=== PATIENT | female | born 1935 | race Asian ===

== ENCOUNTER 2016-08-16 06:47 | Day surgery (SDC) | payer MEDICARE ==
[~2016-08-16] VITALS: Ht 154.9 cm; Wt 70.5 kg
[~2016-08-16 06:47] MED LIST: AMLO5TAB2 PO; ASPI-496 PO; CALCIUM PO; FENTANYL PF 100 MCG/2ML ONE; HYDR25TA6 PO; LOSA100T6 PO; MAGNESIUM PO; MULT-516 PO; POTA10TA5 PO
[2016-08-16] MEDS ORDERED: BACITRACIN/POLYMIXIN B SULFATE OINT 14 GM ONE (06:58)
[2016-08-16] MEDS ORDERED: BALANCED SALT OPHTH IRRIG SOLN 18ML ONE (06:58)
[2016-08-16] MEDS ORDERED: LIDOCAINE/PF 1%-EPI 1:200K, 30ML ONE (06:58)
[2016-08-16] MEDS ORDERED: ONDANSETRON 2MG/ML, 2ML IVPush PRN (07:30)
[2016-08-16] MEDS ORDERED: hydrALAzine 20 MG/ML, 1ML IV PRN (07:30)
[2016-08-16] MEDS ORDERED: FENTANYL PF 100 MCG/2ML IV PRN (07:30)
[2016-08-16] MEDS ORDERED: LABETALOL 5MG/ML, 20ML IV PRN (07:30)
[2016-08-16] MEDS ORDERED: ACETAMINOPHEN 325 MG TABLET PO PRN (07:30)
[2016-08-16] MEDS ORDERED: MIDAZOLAM 1 MG/ML, 2ML ONE (07:32)
[2016-08-16] MEDS ORDERED: LACTATED RINGERS 1,000 ML IV SCH (07:35)
[2016-08-16 07:36] VITALS: BP 145/85
[2016-08-16] MEDS ORDERED: PROPOFOL 10 MG/ML, 20ML ONE (07:38)
[2016-08-16] MEDS ORDERED: CEFAZOLIN 1,000 MG ONE (07:38)
[2016-08-16] MEDS ORDERED: LIDOCAINE 1%-EPI 1:100K, 30ML INFIL ONE (08:05)
[2016-08-16] MEDS ORDERED: BALANCED SALT OPHTH IRRIG SOLN 18ML IO ONE (08:06)
[2016-08-16] MEDS ORDERED: ACETAMINOPHEN 650 MG/20.3 ML UDC ONE (09:18)
== END 2016-08-16 10:55 | disposition home or self-care (01) ==
LOC: OUT 06:47
PROVIDERS: ATTEND Plastic Surgery
DX: H02.831 Dermatochalasis of right upper eyelid (principal); H02.834 Dermatochalasis of left upper eyelid; I10 Essential (primary) hypertension; J45.909 Unspecified asthma, uncomplicated; M19.90 Unspecified osteoarthritis, unspecified site; Z86.19 Personal history of other infectious and parasitic diseases; Z90.49 Acquired absence of other specified parts of digestive tract; Z96.653 Presence of artificial knee joint, bilateral; Z98.49 Cataract extraction status, unspecified eye; Z96.1 Presence of intraocular lens; Z82.49 Family history of ischemic heart disease and other diseases of the circulatory system; Z83.79 Family history of other diseases of the digestive system
CPT/HCPCS: 15823; J0690; J2250; J2704; J3490; J7120; J3010

== ENCOUNTER → 2017-05-12 | Outpatient (CLI) | payer MEDICARE ==
[~2017-05-12] MED LIST changes: -FENTANYL PF 100 MCG/2ML ONE
== END | disposition home or self-care (01) ==
LOC: CFH 06:55
PROVIDERS: ATTEND Internal Medicine
DX: M75.102 Unspecified rotator cuff tear or rupture of left shoulder, not specified as traumatic (principal); M19.012 Primary osteoarthritis, left shoulder; M62.512 Muscle wasting and atrophy, not elsewhere classified, left shoulder; M25.412 Effusion, left shoulder; M65.812 Other synovitis and tenosynovitis, left shoulder

== ENCOUNTER 2019-11-14 09:36 | Outpatient (CLI) | payer MEDICARE ==
[~2019-11-14 09:36] MED LIST changes: +AMLO-150 PO; -AMLO5TAB2 PO; +LOSA100T14 PO; -LOSA100T6 PO
== END 2019-11-14 23:59 | disposition home or self-care (01) ==
LOC: CFH 09:36
PROVIDERS: ATTEND Internal Medicine Cardiovascular Disease
DX: I08.0 Rheumatic disorders of both mitral and aortic valves (principal); I10 Essential (primary) hypertension
CPT/HCPCS: 93306

== ENCOUNTER → 2020-04-03 | Outpatient (CLI) | payer MEDICARE ==
[~2020-04-03] MED LIST changes: +BACL20TA PO; +OXYB10TA26 PO; +losartan PO; +lyrica PO; +magnesium PO
[2020-04-03 13:53] LABS: ALANINE AMINOTRANSFERASE 28 U/L (12-78); ALBUMIN 4.4 g/dL (3.4-5.0); ALKALINE PHOSPHATASE 64 U/L (45-117); ANION GAP 7 mmol/L (5-15); BILIRUBIN,TOTAL 0.4 mg/dL (0.2-1.0); CALCIUM 9.4 mg/dL (8.5-10.1); CHLORIDE 101 mmol/L (98-107); CREATININE 0.87 mg/dL (0.55-1.02); TOTAL PROTEIN 8.5 g/dL (6.4-8.2)
== END | disposition home or self-care (01) ==
LOC: STAR 11:21
PROVIDERS: ATTEND Obstetrics & Gynecology Female Pelvic Medicine and Reconstructive Surgery
DX: Z01.818 Encounter for other preprocedural examination (principal); I49.8 Other specified cardiac arrhythmias; I45.19 Other right bundle-branch block; Z20.828 Contact with and (suspected) exposure to other viral communicable diseases
CPT/HCPCS: 36415; 80053; 87635; 93005

== ENCOUNTER 2020-04-07 10:53 | Day surgery (SDC) | payer MEDICARE ==
[~2020-04-07] VITALS: Ht 152.4 cm; Wt 72.1 kg
[~2020-04-07 10:53] MED LIST changes: +BUPIVACAINE/PF 0.25% ONE
[2020-04-07] MEDS ORDERED: LACTATED RINGERS 1,000 ML IV SCH (11:04)
[2020-04-07] MEDS ORDERED: CHLORHEXIDINE 15 ML UDC MM STA (11:04)
[2020-04-07] MEDS ORDERED: FENTANYL PF 100 MCG/2ML ONE (14:58)
[2020-04-07] MEDS ORDERED: SUCCINYLCHOLINE 20 MG/ML, 10ML ONE (15:29)
[2020-04-07] MEDS ORDERED: PROPOFOL 10 MG/ML, 20ML ONE (15:29)
[2020-04-07] MEDS ORDERED: CEFAZOLIN 1,000 MG ONE (15:29)
[2020-04-07] MEDS ORDERED: ONDANSETRON 2MG/ML, 2ML ONE (15:29)
[2020-04-07] MEDS ORDERED: NEOSTIGMINE 1 MG/ML, 10ML ONE (15:29)
[2020-04-07] MEDS ORDERED: ROCURONIUM 10MG/ML,5ML ONE (15:29)
[2020-04-07] MEDS ORDERED: DEXAMETHASONE 4 MG/ML, 1ML ONE (15:29)
[2020-04-07] MEDS ORDERED: GLYCOPYRROLATE 0.2MG/1ML, 5ML ONE (15:29)
[2020-04-07] MEDS ORDERED: FENTANYL PF 100 MCG/2ML IV PRN (15:30)
[2020-04-07] MEDS ORDERED: ACETAMINOPHEN 325 MG TABLET PO PRN (15:30)
[2020-04-07] MEDS ORDERED: ONDANSETRON 2MG/ML, 2ML IVPush PRN (15:30)
[2020-04-07] MEDS ORDERED: HYDROmorphone 1 MG/ML, 1ML INJ IVPush PRN (15:30)
[2020-04-07] MEDS ORDERED: PROMETHAZINE 25 MG/ML, 1ML IVPush PRN (15:30)
[2020-04-07] MEDS ORDERED: OXYcodone 5 MG/5 ML ORAL.SOL UDC PO PRN (15:30)
[2020-04-07] MEDS ORDERED: PROMETHAZINE 25 MG SUPP PR PRN (15:30)
[2020-04-07] MEDS ORDERED: LABETALOL 5MG/ML, 20ML IV PRN (15:30)
[2020-04-07] MEDS ORDERED: hydrALAzine 20 MG/ML, 1ML IV PRN (15:30)
[2020-04-07] MEDS ORDERED: KETOROLAC 30 MG/1 ML ONE (16:22)
[2020-04-07] MEDS ORDERED: KETOROLAC 30 MG/1 ML IVPush ONE (17:00)
== END 2020-04-07 17:45 | disposition home or self-care (01) ==
LOC: OUT 10:53
PROVIDERS: ATTEND Obstetrics & Gynecology Female Pelvic Medicine and Reconstructive Surgery
DX: N95.0 Postmenopausal bleeding (principal); N84.0 Polyp of corpus uteri; I10 Essential (primary) hypertension; Z79.899 Other long term (current) drug therapy; Z98.890 Other specified postprocedural states
CPT/HCPCS: 58558; 88305; J1885; J2405; J2704; J3010; J7120; J0690; J1100; J2710; J0330

== ENCOUNTER → 2020-07-15 | Outpatient (CLI) | payer MEDICARE ==
[~2020-07-15] MED LIST changes: -BUPIVACAINE/PF 0.25% ONE; +IRBE300T8 PO; +PREG50CA PO; +turmeric PO
[2020-07-15 11:01] LABS: ALANINE AMINOTRANSFERASE 29 U/L (12-78); ALBUMIN 4.2 g/dL (3.4-5.0); ANION GAP 8 mmol/L (5-15); CHLORIDE 99 mmol/L (98-107); CREATININE 0.86 mg/dL (0.55-1.02)
[2020-07-15 11:03] LABS: ALKALINE PHOSPHATASE 62 U/L (45-117); BILIRUBIN,TOTAL 0.6 mg/dL (0.2-1.0); TOTAL PROTEIN 8.1 g/dL (6.4-8.2)
== END | disposition home or self-care (01) ==
LOC: STAR 09:22
PROVIDERS: ATTEND Obstetrics & Gynecology Female Pelvic Medicine and Reconstructive Surgery
DX: Z01.818 Encounter for other preprocedural examination (principal); R10.2 Pelvic and perineal pain; N39.3 Stress incontinence (female) (male); N81.10 Cystocele, unspecified; D25.0 Submucous leiomyoma of uterus; R94.31 Abnormal electrocardiogram [ECG] [EKG]; Z20.822 Contact with and (suspected) exposure to COVID-19
CPT/HCPCS: 36415; 80053; 93005; U0003

== ENCOUNTER 2020-07-21 07:33 | Day surgery (SDC) | payer MEDICARE ==
[~2020-07-21] VITALS: Ht 152.4 cm; Wt 73.6 kg
[~2020-07-21 07:33] MED LIST changes: +BUPIVACAINE/PF 0.25% ONE; +EPINEPHRINE 1 MG/ML, 1ML ONE; +NEOMY/POLYMYXIN B GU IRR. 1 ML ONE
[2020-07-21] MEDS ORDERED: CHLORHEXIDINE 15 ML UDC MM ONE (08:00)
[2020-07-21] MEDS ORDERED: LACTATED RINGERS 1,000 ML IV SCH (08:00)
[2020-07-21 08:10] VITALS: BP 147/91
[2020-07-21] MEDS ORDERED: PROPOFOL 10 MG/ML, 20ML ONE (09:48)
[2020-07-21] MEDS ORDERED: ONDANSETRON 2MG/ML, 2ML ONE (09:48)
[2020-07-21] MEDS ORDERED: NEOSTIGMINE 1 MG/ML, 10ML ONE (09:48)
[2020-07-21] MEDS ORDERED: SUCCINYLCHOLINE 20 MG/ML, 10ML ONE (09:48)
[2020-07-21] MEDS ORDERED: ROCURONIUM 10MG/ML,5ML ONE (09:48)
[2020-07-21] MEDS ORDERED: GLYCOPYRROLATE 0.2MG/1ML, 5ML ONE (09:48)
[2020-07-21] MEDS ORDERED: DEXAMETHASONE 4 MG/ML, 1ML ONE (09:48)
[2020-07-21] MEDS ORDERED: CEFAZOLIN 1,000 MG ONE (09:48)
[2020-07-21] MEDS ORDERED: SUGAMMADEX 200 MG/2 ML IVPush ONE (09:49)
[2020-07-21] MEDS ORDERED: FENTANYL PF 100 MCG/2ML ONE (09:50)
[2020-07-21] MEDS ORDERED: METOPROLOL 1 MG/ML, 5ML ONE (09:53)
[2020-07-21] MEDS ORDERED: FENTANYL PF 250 MCG/5ML ONE (10:34)
[2020-07-21] MEDS ORDERED: FLUORESCEIN SODIUM 500 MG/5 ML ONE (10:55)
[2020-07-21] MEDS ORDERED: FUROSEMIDE 20 MG/2 ML ONE (11:16)
[2020-07-21] MEDS ORDERED: FENTANYL PF 100 MCG/2ML IV PRN (11:30)
[2020-07-21] MEDS ORDERED: KETOROLAC 30 MG/1 ML IVPush PRN (11:30)
[2020-07-21] MEDS ORDERED: HYDROmorphone 1 MG/ML, 1ML INJ IVPush PRN (11:30)
[2020-07-21] MEDS ORDERED: OXYcodone 5 MG/5 ML ORAL.SOL UDC PO PRN (11:30)
[2020-07-21] MEDS ORDERED: ACETAMINOPHEN 325 MG TABLET PO PRN (11:30)
[2020-07-21] MEDS ORDERED: MEPERIDINE/PF 25MG/0.5ML IVPush PRN (11:30)
[2020-07-21] MEDS ORDERED: hydrALAzine 20 MG/ML, 1ML IV PRN (11:30)
[2020-07-21] MEDS ORDERED: LABETALOL 5MG/ML, 20ML IV PRN (11:30)
[2020-07-21] MEDS ORDERED: ONDANSETRON 2MG/ML, 2ML IVPush PRN (11:30)
[2020-07-21] MEDS ORDERED: ACETAMINOPHEN 650 MG/20.3 ML UDC ONE (11:48)
[2020-07-21] MEDS ORDERED: OXYcodone 5 MG/5 ML ORAL.SOL UDC ONE (11:49)
== END 2020-07-21 14:55 | disposition home or self-care (01) ==
LOC: OUT 07:33
PROVIDERS: ATTEND Obstetrics & Gynecology Female Pelvic Medicine and Reconstructive Surgery
DX: N95.0 Postmenopausal bleeding (principal); N81.89 Other female genital prolapse; N80.0 Endometriosis of uterus; D25.1 Intramural leiomyoma of uterus; N88.8 Other specified noninflammatory disorders of cervix uteri; N81.11 Cystocele, midline; N81.6 Rectocele; N81.5 Vaginal enterocele; N39.46 Mixed incontinence; I10 Essential (primary) hypertension; Z79.82 Long term (current) use of aspirin; Z79.899 Other long term (current) drug therapy; Z98.890 Other specified postprocedural states
CPT/HCPCS: 57265; 57282; 57288; 58552; 88307; C1771; J0171; J0330; J0690; J1100; J1940; J2405; J2704; J3010; J7120; J2710